=== PATIENT | male | born 1945 | race Caucasian/White ===

== ENCOUNTER 2018-07-05 06:23 | Day surgery (SDC) | payer OTHER ==
[~2018-07-05 06:23] MED LIST: ANDROGEL1.25 GM TD; ATENOLOL50 MG PO; LEVO-T25 MCG PO; NIACIN ER1000 MG PO; NORVASC5 MG PO
[2018-07-05] MEDS ORDERED: PERCOCET 5-3251 EACH PO (13:20)
== END 2018-07-05 16:50 | disposition home or self-care (01) ==
LOC: CIR.AMB 06:23
DX: D35.1 Benign neoplasm of parathyroid gland (principal)